=== PATIENT | male | born 1950 | race Caucasian/White ===

== ENCOUNTER → 2018-04-12 | Outpatient (CLI) | payer MEDICARE | END | disposition home or self-care (01) | LOC: RAH 13:46 | PROVIDERS: ATTEND Podiatrist | DX: M20.21 Hallux rigidus, right foot (principal); M79.671 Pain in right foot; M79.89 Other specified soft tissue disorders; M20.22 Hallux rigidus, left foot; M1A.0710 Idiopathic chronic gout, right ankle and foot, without tophus (tophi) | CPT/HCPCS: 73610 ==

== ENCOUNTER 2018-10-26 15:45 | Emergency (ER) | payer MEDICARE | END 2018-10-26 16:20 | disposition home or self-care (01) | LOC: EDH 15:45 | DX: H11.31 Conjunctival hemorrhage, right eye (principal); I10 Essential (primary) hypertension; E78.5 Hyperlipidemia, unspecified; Z87.891 Personal history of nicotine dependence ==